=== PATIENT | female | born 1995 | race Caucasian/White ===

== ENCOUNTER 2017-07-09 17:53 | Emergency (ER) | payer OTHER ==
[~2017-07-09] VITALS: Ht 165.1 cm; Wt 52.3 kg
[~2017-07-09 17:53] MED LIST: BCPILLS PO; FLUO20CA35 PO; LORA-741 PO
[2017-07-09 17:58] VITALS: TEMP 37; Ht 165.1 cm; Wt 52.3 kg
--- NOTE | 2017-07-09 18:13 | EMERGENCY ROOM VISIT NOTE ---
History First contact with patient: 18:04 Chief Complaint: BACK PAIN Stated Complaint: LOWER BACK PAIN History of Present Illness The patient is a 21 year old female who presents to the Emergency Room via private vehicle accompanied by mother with complaints of "lower back pain". The patient states that about a week ago she had dysuria, and lower bladder pressure. She states that 3-4 days ago she developed low back pain. She states that it is in the center of her back and on both sides. She denies any injury or trauma. She denies any history of renal calculi. She notes minimal chance of . She notes she is on control pills. She denies any fevers or chills, vaginal discharge, chance of sexual transmitted infection. Review of Systems A complete 10-point Review of Systems was discussed with the patient, with pertinent positives and negatives listed in the History of Present Illness. All remaining Review of Systems questions can be considered negative unless otherwise specified. Past Medical/Surgical History Medical Problems: (1) Nausea Family History No pertinent family history Social History Smoking Status: Current Every Day Smoker Marital Status: in relationship Housing Status: lives with family Occupation Status: unemployed Current/Historical Medications Scheduled Control Pills ( Control Pills), 1 TAB PO DAILY Ondasetron Odt (Zofran Odt), 4 MG SL Q6H Sulfa/Trimethoprim (Bactrim Ds 800MG/160MG), 1 TAB PO BID Scheduled PRN Oxycodone Ir (Roxicodone Ir), 1-2 TAB PO Q4H PRN for Pain Physical Exam Vital Signs Date Time Temp Pulse Resp B/P (MAP) Pulse Ox O2 Delivery O2 Flow Rate FiO2 07/09/17 20:05 82 20 124/70 98 07/09/17 17:58 37.0 93 16 128/79 98 Room Air Physical Exam VITAL SIGNS - Vital signs and nursing notes were reviewed. Afebrile. Stable. GENERAL -21-year-old female appearing her stated age who is in no acute distress. Communicates well with provider and answers questions appropriately. SKIN - Without rashes. No petechial rashes. The skin overlying the back is unremarkable. HEAD - NC/AT. EYES -Sclera anicteric. EARS - No deformities of external structures noted on gross examination bilaterally. NOSE - Midline and without cyanosis. No epistaxis or purulent drainage noted. MOUTH/OROPHARYNX - Without perioral cyanosis. LUNGS - Chest wall symmetric without accessory muscle use, intercostals retractions, or central cyanosis. Normal vesicular breath sounds CTA B/L. No wheezes, rales, or rhonchi appreciated. CARDIAC - RRR with S1/S2. No murmur, rubs, or gallops appreciated. ABDOMEN - Abdominal contour normal without pulsations or visible masses. BS normoactive all four quadrants. No tenderness, palpable masses, hepatosplenomegaly, or ascites noted. EXTREMITIES - No clubbing or peripheral cyanosis. No pretibial edema present. +5 /5 strength noted in UE/LE bilaterally. NEUROLOGIC - Cranial nerves II through XII grossly intact. Sensory intact to light touch throughout. PSYCH - A&O, and cooperates fully with examiner. Pt is very pleasant and interacts well with examiner. Medical Decision & Procedures ER Provider Diagnostic Interpretation: RENAL ULTRASOUND CLINICAL HISTORY: Bilat flank pain, dysuria COMPARISON STUDY: No previous studies for comparison. FINDINGS: The right kidney measured 10.6 cm in length. The left kidney measures 11.3 cm in length. No focal renal masses were visualized. There is no hydronephrosis. There are no perinephric fluid collections. There are no shadowing foci suspicious for calculi. Bilateral ureteral jets were visualized. There is a small amount of echogenic debris within the bladder. IMPRESSION: Small amount of echogenic debris within the bladder. Otherwise normal renal ultrasound. No renal masses identified. No evidence of hydronephrosis. Electronically signed by: Alvin Peterson M.D. 07/09/2017 6:41 PM Dictated Date/Time: 07/09/2017 6:40 PM Laboratory Results Test 07/09/17 18:55 Urine Color YELLOW Urine Appearance CLOUDY (CLEAR) Urine pH 6.5 (4.5-7.5) Urine Specific [place] 1.012 (1.000-1.030) Urine Protein 2+ (NEG) Urine Glucose (UA) NEG (NEG) Urine Ketones NEG (NEG) Urine Occult Blood 3+ (NEG) Urine Nitrite POS (NEG) Urine Bilirubin NEG (NEG) Urine Urobilinogen NEG (NEG) Urine Leukocyte Esterase LARGE (NEG) Urine WBC (Auto) >30 /hpf (0-5) Urine RBC (Auto) 10-30 /hpf (0-4) Urine Hyaline Casts (Auto) 1-5 /lpf (0-5) Urine Epithelial Cells (Auto) 10-20 /lpf (0-5) Urine Bacteria (Auto) 4+ (NEG) Urine Yeast (Auto) (NONE PRSENT) Urine Test NEG (NEG) Medications Administered Medications (Trade) Dose Ordered Sig/Dylon Route Start Time Stop Time Status Last Admin Dose Admin Oxycodone HCl (Roxicodone Immediate Rel 5MG Home Pack) 1 homepack UD STAT PO 07/09/17 19:50 07/09/17 19:52 DC 07/09/17 20:03 1 HOMEPACK Trimethoprim/ Sulfamethoxazole (Sulfameth/ Trimeth Ds 800/ 160MG Home Pack) 1 homepack UD STAT PO 07/09/17 19:50 07/09/17 19:52 DC 07/09/17 20:03 1 HOMEPACK Ondansetron HCl (ZOFRAN ODT 4MG Home Pack) 1 homepack UD STAT PO 07/09/17 19:50 07/09/17 19:52 DC 07/09/17 20:04 1 HOMEPACK Medical Decision Patient was seen and evaluated as above. Her exam reveals bilateral flank tenderness but no superpubic tenderness. She denies chance of STI. Urine was negative. Retroperitoneal ultrasound was obtained to rule out emergent renal ideology. No evidence of fat stranding, pyelonephritis or stone. I believe she has a UTI, may be developing ascension to the kidneys but not full pyelonephritis as her vital signs are stable. Urine does reveal positive nitrites and findings of UTI. Altered pending. I believe she is stable for outpatient management, and will be given 14 days of Bactrim. She was offered inpatient admission, and respectfully declined. I believe she is stable for outpatient management. She'll also be given oxycodone immediate release for her pain in the back, as well as Zofran for any nausea she might develop. There is no nausea this time. She was educated upon management, educated upon worrisome symptoms in which to return, had questions by distress, and was discharged home In evaluation treatment this patient following differential diagnoses were entertained: UTI, pyelonephritis, , among others. [place] Drug Monitoring Program Search Results: patient reviewed within database, no issues identified Medication Reconcilliation Current Medication List: was not reviewed Blood Pressure Screening Patient's blood pressure: Normal blood pressure Impression Primary Impression: UTI (urinary tract infection) Departure Information Dispostion Home / Self-Care Condition GOOD Prescriptions Oxycodone Ir (Roxicodone Ir) 5 Mg Tab 1-2 TAB PO Q4H Y for Pain, #15 TAB For Initial Treatment Prov: Rodrick Martinez PA-C 07/09/17 Ondasetron Odt (ZOFRAN ODT) 4 Mg Tab 4 MG SL Q6H for Nausea, #15 TAB Prov: Rodrick Martinez PA-C 07/09/17 Sulfa/Trimethoprim (Bactrim Ds 800MG/160MG) Tab 1 TAB PO BID for 13 Days, #26 TAB Prov: Rodrick Martinez PA-C 07/09/17 Referrals No Doctor, Assigned (PCP) Patient Instructions My [facility] Additional Instructions You have been treated in the Emergency Department for a Urinary Tract Infection (UTI). As we discussed you will be notified if your urine culture grows out bacteria that is not covered by your antibiotic. You have been prescribed BACTRIM to be taken every 12 hours. This is an antibiotic. All antibiotics have the potential to cause diarrhea. Stop this medication and contact a medical provider if you were to develop any significant adverse side effects including: wheezing, shortness of breath, passing out, vomiting, or a diffuse rash. Always take antibiotics as directed and COMPLETE the ENTIRE course regardless of the improvement of your symptoms. You've been prescribed oxycodone immediate release. This is a narcotic medication. Please no driving or operate machinery while taking this medication. For pain control, you can use the following coit-nfx-[id number] medicines (if >12 yo): - Regular strength (325mg/tab) Tylenol (acetaminophen) 2 tabs every 4-6 hours as needed. Do not exceed 12 tablets in a 24 hour period. Avoid taking more than 3 grams (3000 mg) of Tylenol per day. This includes any other sources of acetaminophen you may take on a regular basis. - Regular strength (200 mg/tab) Advil (ibuprofen) 1-2 tabs every 4-6 hours as needed. Do not exceed a dose of 3200 mg per day. Return to the emergency department if your symptoms worsen despite treatment course outlined above. Drink plenty of water and stay well hydrated. As with any trip to the Emergency Department, you should follow-up with your Primary Care Provider from today's visit. Return to the emergency department if your symptoms persist despite treatment plan outlined above or if the following symptoms occur: increased fevers, chills , low back pain, nausea/vomiting, or blood in your urine. Please return with any new/concerning symptoms.
--- NOTE | 2017-07-09 18:42 | DIAGNOSTIC IMAGING REPORT ---
RENAL ULTRASOUND CLINICAL HISTORY: Bilat flank pain, dysuria COMPARISON STUDY: No previous studies for comparison. FINDINGS: The right kidney measured 10.6 cm in length. The left kidney measures 11.3 cm in length. No focal renal masses were visualized. There is no hydronephrosis. There are no perinephric fluid collections. There are no shadowing foci suspicious for calculi. Bilateral ureteral jets were visualized. There is a small amount of echogenic debris within the bladder. IMPRESSION: Small amount of echogenic debris within the bladder. Otherwise normal renal ultrasound. No renal masses identified. No evidence of hydronephrosis. Electronically signed by: Alvin Peterson M.D. 07/09/2017 6:41 PM Dictated Date/Time: 07/09/2017 6:40 PM
[2017-07-09 19:13] LABS: MANUAL MICROSCOPIC REQUIRED? NO; PREG INTERNAL NEGATIVE QC NEG CLEAR BACKGROUND; PREG INTERNAL POSITIVE QC POS CONTROL LINE; REVIEW REQ? YES; URINE APPEARANCE CLOUDY (CLEAR); URINE BILIRUBIN NEG (NEG); URINE COLOR YELLOW; URINE NITRITE POS (NEG); URINE PH 6.5 (4.5-7.5); URINE SPECIFIC GRAVITY 1.012 (1.000-1.030); UROBILINOGEN NEG (NEG); ZZUR CULT IF INDIC CLEAN CATCH YES
[2017-07-09] MEDS ORDERED: SEPTRA DS HOME PACK 1 EA VIAL PO STA (19:50)
[2017-07-09] MEDS ORDERED: ONDANSETRON HOME PACK 4MG OD TAB PO STA (19:50)
[2017-07-09] MEDS ORDERED: OXYCODONE IR HOME PACK PO STA (19:50)
[2017-07-09] MEDS ORDERED: ONDA4TAB10 SL (19:59)
[2017-07-09] MEDS ORDERED: OXYC1TAB3 PO (19:59)
[2017-07-09] MEDS ORDERED: SULF800T23 PO (19:59)
[2017-07-09 20:05] VITALS: BP 124/70; PULSE 82; O2SAT 98
--- NOTE | 2017-07-11 13:18 | Pharmacy Progress Note ---
ED Pharmacist Culture FollowUp Date of Service: Jul 11, 2017. Patient was sent home with a prescription for Bactrim, which should cover the E. coli growing from the patient's urine culture.
== END 2017-07-09 20:06 | disposition home or self-care (01) ==
LOC: C.EDB 17:54 → C.EDD 20:06
DX: N39.0 Urinary tract infection, site not specified (principal); F17.200 Nicotine dependence, unspecified, uncomplicated

== ENCOUNTER 2017-08-30 17:02 | Emergency (ER) | payer OTHER ==
[~2017-08-30] VITALS: Ht 165.1 cm; Wt 51.8 kg
[~2017-08-30 17:02] MED LIST changes: -FLUO20CA35 PO; -LORA-741 PO; +ONDA4TAB10 SL; +OXYC1TAB3 PO
[2017-08-30 17:04] VITALS: TEMP 36.8; Ht 165.1 cm; Wt 51.8 kg
[2017-08-30] MEDS ORDERED: OXYCODONE HCL IR 5 MG TAB (IMMEDIATE RELEASE) PO STA (17:17)
[2017-08-30 17:50] LABS: BASO % 0.1 %; BASO ABS # 0.01 K/uL (0-0.2); COMPLETE YES; EOS % 0.4 %; HEMATOCRIT 40.6 % (37-47); IG% 0.1 %; LYMPH % 34.7 %; LYMPH ABS # 2.38 K/uL (1.2-3.4); MEAN CELL VOLUME 91.2 fL (80-100); MEAN CORPUSCULAR HEMOGLOBIN 31.9 pg (25-34); MEAN PLATELET VOLUME 11.8 fL (7.4-10.4); MONO % 6.9 %; NEUT % 57.8 %; PLATELET COUNT 182 K/uL (130-400); RED BLOOD COUNT 4.45 M/uL (4.2-5.4); WHITE BLOOD COUNT 6.86 K/uL (4.8-10.8)
[2017-08-30 18:10] LABS: BUN/CREATININE RATIO 9.6 (10-20); CALCIUM 9.2 mg/dl (8.5-10.1); CREATININE 0.75 mg/dl (0.60-1.20); POTASSIUM 3.7 mmol/L (3.5-5.1)
[2017-08-30 18:14] LABS: ALB/GLOB RATIO 1.1 (0.9-2); CKMB/CK RATIO 0.6 (0-3.0)
--- NOTE | 2017-08-30 18:52 | DIAGNOSTIC IMAGING REPORT ---
RENAL ULTRASOUND HISTORY: Bilat flank pain, urinary symptoms COMPARISON: Renal ultrasound 07/09/2017. FINDINGS: Right kidney: 9.9 cm. No hydronephrosis. Normal corticomedullary differentiation and cortical thickness. Left kidney: 10.5 cm. No hydronephrosis. Normal corticomedullary differentiation and cortical thickness. There are 2 adjacent small hyperechoic foci within the interpolar cortex of the left kidney which measure 4 and 3 mm in size. These favor small angiomyolipomas. Bladder: No bladder wall thickening. The bilateral ureteral jets were identified. Trace debris within the bladder is again noted. IMPRESSION: 1. No hydronephrosis. 2. Trace debris within the bladder, unchanged. 3. Hyperechoic foci within the left kidney which likely represent angiomyolipomas. The largest measures 4 mm. Electronically signed by: Tobias Vanegas M.D. 08/30/2017 6:51 PM Dictated Date/Time: 08/30/2017 6:44 PM
[2017-08-30 19:41] LABS: URINE APPEARANCE CLOUDY (CLEAR); URINE BILIRUBIN NEG (NEG); URINE COLOR YELLOW; URINE EPITHELIAL CELL AUTO >30 /lpf (0-5); URINE NITRITE NEG (NEG); URINE SPECIFIC GRAVITY 1.022 (1.000-1.030); UROBILINOGEN NEG (NEG); ZZUR CULT IF INDIC CLEAN CATCH YES
[2017-08-30 19:53] LABS: MANUAL MICROSCOPIC REQUIRED? NO; REVIEW REQ? YES
[2017-08-30 20:28] LABS: URINE MUCUS PRESENT (NONE PRSENT)
[2017-08-30] MEDS ORDERED: AZITHROMYCIN 250 MG TAB PO STA (20:51)
[2017-08-30] MEDS ORDERED: CEFTRIAXONE SOD INJ 1 GM ADDVIAL IV STA (20:51)
[2017-08-30] MEDS ORDERED: OXYCODONE IR HOME PACK PO STA (20:52)
[2017-08-30] MEDS ORDERED: CEPH500C PO (21:02)
[2017-08-30] MEDS ORDERED: PHEN-876 PO (21:04)
--- NOTE | 2017-08-30 21:05 | EMERGENCY ROOM VISIT NOTE ---
History First contact with patient: 17:07 Chief Complaint: FLANK PAIN Stated Complaint: LOWER BACK PAIN History of Present Illness The patient is a 21 year old female who presents to the Emergency Room via private vehicle accompanied by female with complaints of "lower back pain". The patient states that she was seen here back in June for a near identical symptoms of low back pain and urinary frequency. She was given Bactrim and noted that the back pain seemed to go away for about 2 weeks but the urinary symptoms seem to persist. She states that she has 2 sexual partners. She does not think there is chance of sexually transmitted infection. She denies chance of . She states that the back pain returned about one week ago and the urinary symptoms have seemed to progress as well. She denies any blood in the urine, vaginal discharge, fevers, chills or abdominal pain. There is urinary burning, frequency and low back pain. This is bilaterally. Review of Systems A complete 10-point Review of Systems was discussed with the patient, with pertinent positives and negatives listed in the History of Present Illness. All remaining Review of Systems questions can be considered negative unless otherwise specified. Past Medical/Surgical History Medical Problems: (1) Nausea Family History No pertinent family history Social History Smoking Status: Current Every Day Smoker Marital Status: in relationship Housing Status: lives with family Occupation Status: unemployed Current/Historical Medications Scheduled Control Pills ( Control Pills), 1 TAB PO DAILY Cephalexin Monohydrate (Keflex), 500 MG PO BID Phenazopyridine HCl (Pyridium), 200 MG PO TID Physical Exam Vital Signs Date Time Temp Pulse Resp B/P (MAP) Pulse Ox O2 Delivery O2 Flow Rate FiO2 08/30/17 21:33 61 18 124/81 100 08/30/17 18:45 57 16 129/79 100 Room Air 08/30/17 17:04 36.8 90 20 144/94 98 Room Air Physical Exam VITAL SIGNS - Vital signs and nursing notes were reviewed. Stable. Afebrile. Nontoxic tachycardic. GENERAL -21-year-old female appearing her stated age who is in no acute distress. Communicates well with provider and answers questions appropriately. SKIN - Without rashes. No petechial rashes. HEAD - NC/AT. EYES - Sclera anicteric. EARS - No deformities of external structures noted on gross examination bilaterally. NOSE - Midline and without cyanosis. No epistaxis or purulent drainage noted. Septum midline without deviation or septal hematoma noted. MOUTH/OROPHARYNX - Without perioral cyanosis. LUNGS - Chest wall symmetric without accessory muscle use, intercostals retractions, or central cyanosis. Normal vesicular breath sounds CTA B/L. No wheezes, rales, or rhonchi appreciated. CARDIAC - RRR with S1/S2. No murmur, rubs, or gallops appreciated. ABDOMEN - Abdominal contour normal without pulsations or visible masses. BS normoactive all four quadrants. No tenderness, palpable masses, hepatosplenomegaly, or ascites noted. MUSCULOSKELETAL: There is tenderness to palpation overlying the patient's paraspinous musculature of the lumbar spine. CVA tenderness bilaterally. Medical Decision & Procedures ER Provider Diagnostic Interpretation: RENAL ULTRASOUND HISTORY: Bilat flank pain, urinary symptoms COMPARISON: Renal ultrasound 07/09/2017. FINDINGS: Right kidney: 9.9 cm. No hydronephrosis. Normal corticomedullary differentiation and cortical thickness. Left kidney: 10.5 cm. No hydronephrosis. Normal corticomedullary differentiation and cortical thickness. There are 2 adjacent small hyperechoic foci within the interpolar cortex of the left kidney which measure 4 and 3 mm in size. These favor small angiomyolipomas. Bladder: No bladder wall thickening. The bilateral ureteral jets were identified. Trace debris within the bladder is again noted. IMPRESSION: 1. No hydronephrosis. 2. Trace debris within the bladder, unchanged. 3. Hyperechoic foci within the left kidney which likely represent angiomyolipomas. The largest measures 4 mm. Electronically signed by: Tobias Vanegas M.D. 08/30/2017 6:51 PM Dictated Date/Time: 08/30/2017 6:44 PM Laboratory Results 08/30/17 17:35 Red Blood Count 4.45, Mean Corpuscular Volume 91.2, Mean Corpuscular Hemoglobin 31.9, Mean Corpuscular Hemoglobin Concent 35.0, Mean Platelet Volume 11.8, Neutrophils (%) (Auto) 57.8, Lymphocytes (%) (Auto) 34.7, Monocytes (%) (Auto) 6.9, Eosinophils (%) (Auto) 0.4, Basophils (%) (Auto) 0.1, Neutrophils # (Auto) 3.96, Lymphocytes # (Auto) 2.38, Monocytes # (Auto) 0.47, Eosinophils # (Auto) 0.03, Basophils # (Auto) 0.01 08/30/17 17:35 Test 08/30/17 17:35 08/30/17 19:00 White Blood Count 6.86 K/uL (4.8-10.8) Red Blood Count 4.45 M/uL (4.2-5.4) Hemoglobin 14.2 g/dL (12.0-16.0) Hematocrit 40.6 % (37-47) Mean Corpuscular Volume 91.2 fL (80-100) Mean Corpuscular Hemoglobin 31.9 pg (25-34) Mean Corpuscular Hemoglobin Concent 35.0 g/dl (32-36) Platelet Count 182 K/uL (130-400) Mean Platelet Volume 11.8 fL (7.4-10.4) Neutrophils (%) (Auto) 57.8 % Lymphocytes (%) (Auto) 34.7 % Monocytes (%) (Auto) 6.9 % Eosinophils (%) (Auto) 0.4 % Basophils (%) (Auto) 0.1 % Neutrophils # (Auto) 3.96 K/uL (1.4-6.5) Lymphocytes # (Auto) 2.38 K/uL (1.2-3.4) Monocytes # (Auto) 0.47 K/uL (0.11-0.59) Eosinophils # (Auto) 0.03 K/uL (0-0.5) Basophils # (Auto) 0.01 K/uL (0-0.2) RDW Standard Deviation 42.3 fL (36.4-46.3) RDW Coefficient of Variation 12.5 % (11.5-14.5) Immature Granulocyte % (Auto) 0.1 % Immature Granulocyte # (Auto) 0.01 K/uL (0.00-0.02) Anion Gap 8.0 mmol/L (3-11) Est Creatinine Clear Calc Drug Dose 97.8 ml/min Estimated GFR () 133.0 Estimated GFR (Non- 114.7 BUN/Creatinine Ratio 9.6 (10-20) Calcium Level 9.2 mg/dl (8.5-10.1) Total Bilirubin 1.3 mg/dl (0.2-1) Aspartate Amino Transf (AST/SGOT) 16 U/L (15-37) Alanine Aminotransferase (ALT/SGPT) 26 U/L (12-78) Alkaline Phosphatase 57 U/L (45-117) Total Creatine Kinase 100 U/L (26-192) Creatine Kinase MB 0.6 ng/ml (0.5-3.6) Creatine Kinase MB Ratio 0.6 (0-3.0) Total Protein 7.9 gm/dl (6.4-8.2) Albumin 4.2 gm/dl (3.4-5.0) Globulin 3.7 gm/dl (2.5-4.0) Albumin/Globulin Ratio 1.1 (0.9-2) Urine Color YELLOW Urine Appearance CLOUDY (CLEAR) Urine pH 5.0 (4.5-7.5) Urine Specific [place] 1.022 (1.000-1.030) Urine Protein NEG (NEG) Urine Glucose (UA) NEG (NEG) Urine Ketones 2+ (NEG) Urine Occult Blood NEG (NEG) Urine Nitrite NEG (NEG) Urine Bilirubin NEG (NEG) Urine Urobilinogen NEG (NEG) Urine Leukocyte Esterase MODERATE (NEG) Urine WBC (Auto) 10-30 /hpf (0-5) Urine RBC (Auto) 0-4 /hpf (0-4) Urine Hyaline Casts (Auto) 0 /lpf (0-5) Urine Epithelial Cells (Auto) >30 /lpf (0-5) Urine Bacteria (Auto) NEG (NEG) Urine Pathogenic Casts /lpf (0) Urine Mucus PRESENT (NONE PRSENT) Urine Test NEG (NEG) Medications Administered Medications (Trade) Dose Ordered Sig/Dylon Route Start Time Stop Time Status Last Admin Dose Admin Oxycodone HCl (Roxicodone Immediate Rel Tab) 5 mg NOW STAT PO 08/30/17 17:17 08/30/17 17:19 DC 08/30/17 17:53 5 MG Azithromycin (Zithromax Tab) 1,000 mg NOW STAT PO 08/30/17 20:51 08/30/17 20:53 DC 08/30/17 21:04 1,000 MG Ceftriaxone Sodium (Rocephin Inj) 1 gm NOW STAT IV 08/30/17 20:51 08/30/17 20:53 DC 08/30/17 21:04 1 GM Oxycodone HCl (Roxicodone Immediate Rel 5MG Home Pack) 1 [facility] UD STAT PO 08/30/17 20:52 08/30/17 20:53 DC 08/30/17 21:05 1 [facility] Medical Decision Patient was seen and evaluated as above. She presents to us today with low back. Urinary tract symptoms. She is well on exam. She is afebrile. I suspect UTI. IV access was initiated, and the above workup was performed. I personally cared for this patient on her previous visit. Her ultrasound was redone today and reveals no evidence of pyelonephritis. There is questionable angiomyolipoma as well as debris within the bladder. CBC reveals no concerning leukocytosis or anemia. Metabolic panel reveals no evidence of kidney or liver failure. Bilirubin high at 1.3. Patient was informed upon this. Urine reveals 2+ ketones, moderate leukocytes, 10-30 white blood cells, greater than 30 epithelial cells, and urine mucus present. Urine test negative. Gonorrhea and chlamydia urine pending. There is no vaginal discharge. Because the patient has had presence of the symptoms in the setting of having 2 sexual partners I do believe that treating for potential underlying STI is appropriate. She was given 1 g Rocephin IV as well as 1 g of azithromycin by mouth. This is to cover for underlying urinary organisms as well as sexually transmitted infections. I do not believe that at this time a pelvic exam is warranted as her is no pelvic complaint or discharge. She was given morphine for her pain here. She'll be sent home on a course of Keflex for suspected UTI. I informed her that she may also have interstitial cystitis or other elements of which she is to follow up with her [employer], as well as [facility] of which I did have the caser in provider paperwork for. She is to follow-up. She is to return with worsening. She was educated upon management, educated upon worrisome symptoms which to return, had questions answered prior to discharge, and was discharged home in good condition. In evaluation treatment this patient the following differential diagnoses were entertained: UTI, pyelonephritis, STI, among others. Pt. called at 2:14 PM on 08/31/2017 to encourage follow up for the angiomyolipomas in the kidney (left). She is to follow up with [facility]. Impression Primary Impression: Back pain Additional Impressions: Urinary tract infection Angiomyolipoma of left kidney Departure Information Dispostion Home / Self-Care Condition GOOD Prescriptions Phenazopyridine HCl (Pyridium) 200 Mg Tab 200 MG PO TID for 2 Days, #6 TAB Prov: Rodrick Martinez PA-C 08/30/17 Cephalexin Monohydrate (Keflex) 500 Mg Cap 500 MG PO BID for 10 Days, #20 CAP Prov: Rodrick Martinez PA-C 08/30/17 Referrals No Doctor, Assigned (PCP) Sammy Rivera M.D. Patient Instructions [facility] Additional Instructions You have been treated in the Emergency Department for a Urinary Tract Infection (UTI) but also as we discussed may have an underlying sexually transmitted infection which we have treated you for today. You have been prescribed keflex to be taken every 12 hours. This is an antibiotic. All antibiotics have the potential to cause diarrhea. Stop this medication and contact a medical provider if you were to develop any significant adverse side effects including: wheezing, shortness of breath, passing out, vomiting, or a diffuse rash. Always take antibiotics as directed and COMPLETE the ENTIRE course regardless of the improvement of your symptoms. No driving with the oxy ir You have been prescribed Pyridium to be taken as prescribed. This medicine will help with the urinary symptoms that you have been experiencing. Be aware that Pyridium may turn your urine a red-orange or brown color. This effect is harmless. For pain control, you can use the following dhce-[id number] medicines (if >12 yo): - Regular strength (325mg/tab) Tylenol (acetaminophen) 2 tabs every 4-6 hours as needed. Do not exceed 12 tablets in a 24 hour period. Avoid taking more than 3 grams (3000 mg) of Tylenol per day. This includes any other sources of acetaminophen you may take on a regular basis. - Regular strength (200 mg/tab) Advil (ibuprofen) 1-2 tabs every 4-6 hours as needed. Do not exceed a dose of 3200 mg per day. Return to the emergency department if your symptoms worsen despite treatment course outlined above. Drink plenty of water and stay well hydrated. As with any trip to the Emergency Department, you should follow-up with your Primary Care Provider from today's visit. Please follow up with your OBGYN, [facility] as we discussed and urologist if symptoms persist (Dr. Rivera). Please call to schedule this. Return to the emergency department if your symptoms persist despite treatment plan outlined above or if the following symptoms occur: increased fevers, chills , low back pain, nausea/vomiting, or blood in your urine. Problem Qualifiers
[2017-08-30 21:33] VITALS: BP 124/81; PULSE 61; O2SAT 100
== END 2017-08-30 21:34 | disposition home or self-care (01) ==
LOC: C.EDB 17:03 → C.EDC 21:34
DX: N39.0 Urinary tract infection, site not specified (principal); M54.5 Low back pain; D17.71 Benign lipomatous neoplasm of kidney; F17.200 Nicotine dependence, unspecified, uncomplicated

== ENCOUNTER 2017-09-08 20:45 | Emergency (ER) | payer SELFPAY ==
[~2017-09-08] VITALS: Ht 165.1 cm; Wt 50.8 kg
[~2017-09-08 20:45] MED LIST changes: +CEPH500C PO; -ONDA4TAB10 SL; -OXYC1TAB3 PO
[2017-09-08 20:49] VITALS: TEMP 36.8; Ht 165.1 cm; Wt 50.8 kg
--- NOTE | 2017-09-08 21:59 | DIAGNOSTIC IMAGING REPORT ---
THORACIC SPINE 3 VIEWS, LUMBAR SPINE 5 VIEWS HISTORY: back pain/flank pain COMPARISON: None. FINDINGS: There is no fracture. No subluxation. Disc spaces are preserved. Paraspinal soft tissues are unremarkable. The sacrum is intact. IMPRESSION: No fracture or subluxation within the thoracic or lumbar spine spine. Electronically signed by: Tobias Vanegas M.D. 09/08/2017 9:58 PM Dictated Date/Time: 09/08/2017 9:56 PM
[2017-09-08 22:36] VITALS: BP 132/72; PULSE 88; O2SAT 98
[2017-09-08] MEDS ORDERED: HYDR-5688 PO (22:54)
[2017-09-08] MEDS ORDERED: NORCO 5/325MG HOME PACK PO ONE (23:00)
[2017-09-08 23:02] LABS: URINE APPEARANCE CLEAR (CLEAR); URINE BILIRUBIN NEG (NEG); URINE COLOR YELLOW; URINE NITRITE NEG (NEG); URINE SPECIFIC GRAVITY 1.015 (1.000-1.030); UROBILINOGEN NEG (NEG); ZZUR CULT IF INDIC CLEAN CATCH NO
[2017-09-08 23:05] LABS: MANUAL MICROSCOPIC REQUIRED? NO; REVIEW REQ? NO
--- NOTE | 2017-09-09 00:34 | EMERGENCY ROOM VISIT NOTE ---
History First contact with patient: 21:00 Chief Complaint: BACK PAIN Stated Complaint: LOWER BACK PAIN History of Present Illness The patient is a 21 year old female who presents to the Emergency Room with complaints of bilateral flank/back pain ongoing for the past few months. The patient has been seen multiple times at this facility with this identical complaint. She has had 2 ultrasounds of her kidneys as well as blood work, and urine testing. She was treated for a UTI twice, and just completed a course of Keflex yesterday. The patient had GC and chlamydia swabs that were negative. She has not had fever, chills, chest pain, chest tightness, shortness of breath. She does not report numbness or paresthesias. On her second ultrasound of her kidneys last week, she was noted to have a 4 mm benign- appearing mass. The patient has an active referral to nephrology, but does not yet have an appointment. She has an appointment later this week with [facility]. The patient evidently was given a small amount of pain medication (oxy IR) with one of her visits, and she states that this did help her pain. The patient is intermittently taking Advil and Tylenol, with only minimal improvement. She does not have difficulty with urination today. She denies chance of . She rates her discomfort a 6/10. Review of Systems More than 10 systems were reviewed and otherwise negative with the exception of history of present illness. Past Medical/Surgical History Medical Problems: (1) Nausea Family History No pertinent family history Social History Smoking Status: Current Every Day Smoker Marital Status: in relationship Housing Status: lives with family Occupation Status: unemployed Current/Historical Medications Scheduled Control Pills ( Control Pills), 1 TAB PO DAILY Cephalexin Monohydrate (Keflex), 500 MG PO BID Scheduled PRN Hydrocodone/Acetaminophen 5MG/325MG (Maryneal 5MG/325MG), 1 TABLET PO Q6 PRN for Pain Physical Exam Vital Signs Date Time Temp Pulse Resp B/P (MAP) Pulse Ox O2 Delivery O2 Flow Rate FiO2 09/08/17 22:36 88 16 132/72 98 Room Air 09/08/17 20:49 36.8 96 18 146/92 98 Room Air Physical Exam VITALS: Vitals are noted on the nurse's note and reviewed by myself. Vital signs stable. GENERAL: Well-developed, well-nourished, white female, who is in no acute distress and resting comfortably. Patient is cooperative with the examination. NECK: Supple without nuchal rigidity. No lymphadenopathy. No thyromegaly. Cervical spine is nontender. HEART: Regular rate and rhythm without murmurs gallops or rubs. LUNGS: Clear to auscultation bilaterally without wheezes, rales or rhonchi. No retractions or accessory muscle use. ABDOMEN: Positive normal bowel sounds x 4. Soft, nontender, without masses or organomegaly. No guarding or rebound tenderness and mild bilateral CVA tenderness.. MUSCULOSKELETAL: No muscle atrophy, erythema, or edema noted. Full range of motion without joint tenderness in all extremities. Medical Decision & Procedures ER Provider Diagnostic Interpretation: THORACIC SPINE 3 VIEWS, LUMBAR SPINE 5 VIEWS HISTORY: back pain/flank pain COMPARISON: None. FINDINGS: There is no fracture. No subluxation. Disc spaces are preserved. Paraspinal soft tissues are unremarkable. The sacrum is intact. IMPRESSION: No fracture or subluxation within the thoracic or lumbar spine spine. Laboratory Results Test 09/08/17 22:34 Urine Color YELLOW Urine Appearance CLEAR (CLEAR) Urine pH 5.0 (4.5-7.5) Urine Specific [place] 1.015 (1.000-1.030) Urine Protein NEG (NEG) Urine Glucose (UA) NEG (NEG) Urine Ketones TRACE (NEG) Urine Occult Blood NEG (NEG) Urine Nitrite NEG (NEG) Urine Bilirubin NEG (NEG) Urine Urobilinogen NEG (NEG) Urine Leukocyte Esterase NEG (NEG) Urine Test NEG (NEG) Medications Administered Medications (Trade) Dose Ordered Sig/Dylon Route Start Time Stop Time Status Last Admin Dose Admin Acetaminophen/ Hydrocodone Bitart (Maryneal 5/325mg Home Pack) 1 homepack UD ONCE PO 09/08/17 23:00 09/08/17 23:01 DC 09/08/17 23:00 1 HOMEPACK ED Course Physical exam and history were performed. Nursing notes, EMR, and Medication List were personally reviewed. Patient appears to have reports of ongoing bilateral flank/back pain. The pain does not sound colicky. It does worsen with certain palpation in the area, and certainly could be musculoskeletal. On examination the patient does not appear toxic. Her vital signs are normal. She does have some very minimal bilateral flank pain on exam. There is no distinct tenderness throughout spine, however she has not had x-rays of her spine at this point. X-rays were ordered, as well as a urine specimen. The patient's x-rays are as above and did not show acute findings. Urine was collected and is essentially clear. Culture is pending. I discussed options of care with the patient. She has had unremarkable blood work and imaging studies previously, and her symptoms have been ongoing for several weeks. Her primary concern today is pain control. I will give her a very minimal course of Vicodin, as her PDMP is clear. I explained that she needs to keep her [facility] GENER[facility] appointment, as this could certainly be related to endometriosis or similar process. 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 At this time I do not feel a CT scan is warranted, as she does not have an exam consistent with surgical abdomen. The patient was pleased with this plan and voiced understanding. She rated her discomfort a 1/10 at departure. The chart was completed utilizing [employer] Speech Voice Recognition Software. Grammatical errors, random word insertions, pronoun errors, and incomplete sentences are an occasional consequence of this system due to software limitations, ambient noise, and hardware issues. Any formal questions or concerns about the content, text, or information contained within the body of this dictation should be directly addressed to the provider for clarification. . Medical Decision Differential diagnosis: Etiologies such as musculoskeletal, disc herniation, fracture, aortic disease, metastatic disease, cord compression, discitis, infection, renal colic, gastrointestinal, acute exacerbation of chronic back pain, sciatica, cauda equina, as well as others were entertained. Impression Primary Impression: Bilateral flank pain Departure Information Dispostion Home / Self-Care Condition GOOD Prescriptions Hydrocodone/Acetaminophen 5MG/325MG (Maryneal 5MG/325MG) Tab 1 TABLET PO Q6 Y for Pain, #10 TAB For Initial Treatment Prov: Devyn Ronquillo PA-C 09/08/17 Forms HOME CARE DOCUMENTATION FORM, IMPORTANT VISIT INFORMATION Patient Instructions My [facility] Additional Instructions You were seen and evaluated today on an emergency basis only. This is not a substitute for, or an effort to provide, complete comprehensive medical care. It is not possible to recognize and treat all injuries or illnesses in a single emergency department visit. For this reason it is recommended that you followup with your LENS GENERATOR this week as scheduled. We also recommend you schedule with urology/nephrology as soon as reasonably possible. For baseline pain relief you may alternate ibuprofen and acetaminophen every 4 hours for pain control. Take 600 mg ibuprofen (Advil) and then 4 hours later take 1000 mg acetaminophen (Tylenol). Do not take more than 3000 mg acetaminophen in a single day. Maryneal (hydrocodone/acetaminophen) 5/325 mg every 6 hours as needed for worsening breakthrough pain. Do not drink or drive on [place]. This medication will likely make you tired. Do not take Maryneal and Tylenol at the same time as both contain acetaminophen. Maryneal may cause constipation. You may wish to take an [id number] stool softener like Colace if this occurs. Drink plenty of fluids and remain well hydrated. You are welcome to return to the emergency department anytime with new, worsening, or concerning symptoms.
== END 2017-09-08 23:05 | disposition home or self-care (01) ==
LOC: C.EDB 20:46 → C.EDD 23:05
DX: R10.9 Unspecified abdominal pain (principal); M54.5 Low back pain; F17.200 Nicotine dependence, unspecified, uncomplicated